=== PATIENT | female | born 1970 | race Caucasian/White ===

== ENCOUNTER → 2017-10-29 | Outpatient (CLI) | payer BC ==
[~2017-10-29] MED LIST: IOPAMIDOL-370 100 ML VIAL IV ONE
== END | disposition home or self-care (01) ==
LOC: RAH 07:59
PROVIDERS: ATTEND Internal Medicine Medical Oncology
DX: Z12.31 Encounter for screening mammogram for malignant neoplasm of breast (principal); C20 Malignant neoplasm of rectum; C78.01 Secondary malignant neoplasm of right lung; C77.5 Secondary and unspecified malignant neoplasm of intrapelvic lymph nodes; J98.11 Atelectasis; Z98.890 Other specified postprocedural states
CPT/HCPCS: 71260; 74177; 77067; Q9967

== ENCOUNTER → 2018-12-23 | Outpatient (CLI) | payer OTHER | END | disposition home or self-care (01) | LOC: SHCH 13:27 | PROVIDERS: ATTEND Internal Medicine Cardiovascular Disease | DX: R07.9 Chest pain, unspecified (principal) | CPT/HCPCS: 93306 ==

== ENCOUNTER → 2018-12-27 | Outpatient (CLI) | payer OTHER ==
[~2018-12-27] VITALS: Ht 180.3 cm; Wt 108.0 kg
[~2018-12-27] MED LIST changes: -IOPAMIDOL-370 100 ML VIAL IV ONE; +REGADENOSON 0.4 MG/5 ML PF SYG IVP SCH
== END | disposition home or self-care (01) ==
LOC: SHCH 07:55
PROVIDERS: ATTEND Internal Medicine Cardiovascular Disease
DX: R07.9 Chest pain, unspecified (principal)
CPT/HCPCS: 78452; 93017; 96374; A9500 ×2; J2785

== ENCOUNTER → 2020-02-08 | Outpatient (CLI) | payer OTHER ==
[~2020-02-08] MED LIST changes: +IOHEXOL 350 MG/ML 100ML INFUS..BTL IV ONE; -REGADENOSON 0.4 MG/5 ML PF SYG IVP SCH
== END | disposition home or self-care (01) ==
LOC: RAH 08:33
PROVIDERS: ATTEND Internal Medicine Medical Oncology
DX: C20 Malignant neoplasm of rectum (principal)
CPT/HCPCS: 71260; 74177; Q9967

== ENCOUNTER 2020-08-05 09:00 | Inpatient (IN) | payer OTHER ==
[~2020-08-05] VITALS: Ht 182.9 cm; Wt 117.8 kg
[~2020-08-05 09:00] MED LIST changes: +HYDR-4457 PO; -IOHEXOL 350 MG/ML 100ML INFUS..BTL IV ONE
[2020-08-05 11:34] LABS: BASOPHILS % (AUTO) 0.7 % (0.0-5.0); EOSINOPHILS % (AUTO) 1.8 % (0.0-8.0); HEMATOCRIT 41.2 % (36-48); LYMPHOCYTES % (AUTO) 23.5 % (21.0-51.0); MEAN CORPUSCULAR HEMOGLOBIN 29.4 pg (27.0-33.0); MEAN CORPUSCULAR HGB CONC 32.5 g/dL (32.0-36.0); MEAN CORPUSCULAR VOLUME 90.4 fL (79-99); MONOCYTES % (AUTO) 10.7 % (3.0-13.0); PLATELET COUNT (AUTO) 225 K/uL (130-400); RED BLOOD CELL COUNT(AUTO) 4.56 MIL/uL (4.00-5.50); RED CELL DISTRIBUTION WIDTH 12.3 % (11.0-15.5); WHITE BLOOD COUNT (AUTO) 7.2 K/uL (4.8-10.8)
[2020-08-05 11:45] LABS: CREATININE 0.9 mg/dL (0.5-1.5); POTASSIUM 4.1 mmol/L (3.5-5.1)
[2020-08-05 11:49] LABS: APPEARANCE,URINE Clear (CLEAR); BILIRUBIN,URINE Negative (NEGATIVE); COLOR,URINE Dark Yellow (YELLOW); GLUCOSE, URINE (UA) Negative (NEGATIVE); KETONES,URINE Negative (NEGATIVE); LEUKOCYTE ESTERASE ,URINE Negative (NEGATIVE); NITRATE,URINE Negative (NEGATIVE); OCCULT BLOOD,URINE Negative (NEGATIVE); PH,URINE 5.5 (5.0-8.0); PROTEIN,URINE Negative (NEGATIVE)
[2020-08-05 11:58] LABS: BACTERIA,URINE Rare /HPF (None Seen); RBC,URINE 0-1 /HPF (0-1); SQUAMOUS EPITHELIAL CELL,UR Rare /HPF (0-2); WBC,URINE 0-1 /HPF (0-1)
[2020-08-05 12:22] LABS: INR 0.91 (0.85-1.15); PROTHROMBIN TIME 9.8 SEC (9.6-11.6)
[2020-08-09 12:35] VITALS: BP 129/67
[2020-08-09] MEDS ORDERED: LEVO200T5 PO (12:59)
[2020-08-09] MEDS ORDERED: MELA1TAB8 PO (13:02)
[2020-08-09] MEDS ORDERED: DULO60CA64 PO (13:02)
[2020-08-09] MEDS ORDERED: GABA600T10 PO (13:02)
[2020-08-09] MEDS ORDERED: [UNRECOGNIZED DRUG - CODE] PO (13:02)
[2020-08-12] VITALS (22 sets, daily range): BP systolic 102–134; BP diastolic 43–70
[2020-08-12] MEDS ORDERED: LACTATED RINGERS 1000ML 1,000 ML IV ONE (09:12)
[2020-08-12] MEDS: CEFAZOLIN SODIUM 1 GM VIAL IVP PRN ×2 (09:44→12:43)
[2020-08-12] MEDS ORDERED: METOCLOPRAMIDE 10 MG/2 ML VIAL ONE (10:57)
[2020-08-12] MEDS ORDERED: KETOROLAC TROMETHAMINE 15MG/ML ONE (10:58)
[2020-08-12] MEDS ORDERED: ACETAMINOPHEN EXTRA STRENGTH 500 MG TABLET ONE (10:58)
[2020-08-12] MEDS ORDERED: CELECOXIB 200 MG CAP ONE (10:59)
[2020-08-12] MEDS ORDERED: TRANEXAMIC ACID 1000MG/10ML ONE ×2 (11:31→15:36)
[2020-08-12] MEDS ORDERED: CEFAZOLIN SODIUM 1 GM VIAL ONE (11:31)
[2020-08-12] MEDS ORDERED: LIDOCAINE PF 2% 5ML ABBOJECT ONE (11:41)
[2020-08-12] MEDS ORDERED: PROPOFOL 10 MG/ML 20ML VIAL IV ONE ×2 (11:41→13:20)
[2020-08-12] MEDS ORDERED: MIDAZOLAM HCL 1 MG/ML 2ML VIAL ONE (11:42)
[2020-08-12] MEDS ORDERED: ROCURONIUM 10MG/1ML SYR 10 MG/ML ML ONE (11:42)
[2020-08-12] MEDS ORDERED: ROPIVACAINE 0.5% 5MG/ML 30ML IJ ONE (11:47)
[2020-08-12] MEDS ORDERED: MEPERIDINE-PF 25 MG/ML SYG ONE ×3 (12:45→16:43)
[2020-08-12] MEDS ORDERED: EPHEDRINE SULFATE 50 MG/ML AMPULE ONE (13:43)
[2020-08-12] MEDS ORDERED: FENTANYL CITRATE PF 50 MCG/1 ML 2ML VIAL ONE (14:54)
[2020-08-12] MEDS ORDERED: GLYCOPYRROLATE 1 MG/5 ML SYRINGE ONE (14:56)
[2020-08-12] MEDS ORDERED: NEOSTIGMINE 5MG/5ML SYR IV ONE (14:56)
[2020-08-12] MEDS ORDERED: FERROUS FUMARATE 324 MG TABLET PO PRN (15:00)
[2020-08-12] MEDS ORDERED: TRAMADOL HCL 50 MG TABLET PO PRN (15:00)
[2020-08-12] MEDS: SODIUM CHLORIDE 0.9% 1000ML 1,000 ML IV SCH (15:00)
[2020-08-12] MEDS: ACETAMINOPHEN EXTRA STRENGTH 500 MG TABLET PO SCH ×2 (15:00→23:00)
[2020-08-12] MEDS ORDERED: POTASSIUM CHLORIDE 20MEQ/100ML 100 ML IV PRN (15:00)
[2020-08-12] MEDS ORDERED: TEMAZEPAM 15 MG CAPSULE PO PRN (15:00)
[2020-08-12] MEDS ORDERED: CALCIUM CARBONATE 500 MG TABLET PO PRN (15:00)
[2020-08-12] MEDS ORDERED: LIDOCAINE HCL-MPF 1% 2ML VIAL IV PRN (15:00)
[2020-08-12] MEDS ORDERED: ONDANSETRON HCL 4 MG/2 ML VIAL IVP PRN (15:00)
[2020-08-12] MEDS ORDERED: POTASSIUM CHLORIDE 10% ELIXIR 20 MEQ/15 ML UDCUP PO PRN (15:00)
[2020-08-12] MEDS ORDERED: POTASSIUM CHLORIDE 20 MEQ ERTAB PO PRN (15:00)
[2020-08-12] MEDS ORDERED: DiphenhydrAMINE HCL 50 MG/ML VIAL IVP PRN (15:00)
[2020-08-12] MEDS: OXYCODONE HCL 5 MG TAB PO PRN ×2 (17:44→22:28)
[2020-08-12] MEDS: FAMOTIDINE 20MG TAB 20 MG TAB PO SCH (19:49)
[2020-08-12] MEDS: CELECOXIB 200 MG CAP PO SCH (19:49)
[2020-08-12] MEDS: PREGABALIN 25 MG CAP PO SCH (19:49)
[2020-08-12] MEDS: ASPIRIN 81MG TAB.CHEW PO SCH (19:49)
[2020-08-12] MEDS: KETOROLAC TROMETHAMINE 15MG/ML IV PRN (20:09)
[2020-08-12] MEDS: CEFAZOLIN 3GM /D5W 100ML 100 ML IV SCH (20:18)
[2020-08-12] MEDS: HYDROMORPHONE HCL 2 MG/ML VIAL IVP PRN ×2 (21:34→23:05)
[2020-08-13] MEDS: HYDROMORPHONE HCL 2 MG/ML VIAL IVP PRN ×5 (00:23→05:28)
[2020-08-13] MEDS: SODIUM CHLORIDE 0.9% 1000ML 1,000 ML IV SCH ×2 (01:17→11:00)
[2020-08-13] MEDS ORDERED: HYDROMORPHONE PCA 10 MG/50 ML 50 ML IV PRN (01:45)
[2020-08-13] MEDS ORDERED: NALOXONE HCL 0.4 MG/1 ML ML IVP PRN (01:45)
[2020-08-13] MEDS: CEFAZOLIN 3GM /D5W 100ML 100 ML IV SCH (03:29)
[2020-08-13 03:59] VITALS: BP 96/48
[2020-08-13] MEDS: OXYCODONE HCL 5 MG TAB PO PRN ×4 (04:55→17:57)
[2020-08-13 05:45] LABS: HEMATOCRIT 31.1 % (36-48); MEAN CORPUSCULAR HEMOGLOBIN 29.1 pg (27.0-33.0); MEAN CORPUSCULAR HGB CONC 32.8 g/dL (32.0-36.0); MEAN CORPUSCULAR VOLUME 88.9 fL (79-99); RED BLOOD CELL COUNT(AUTO) 3.5 MIL/uL (4.00-5.50); RED CELL DISTRIBUTION WIDTH 12.1 % (11.0-15.5); WHITE BLOOD COUNT (AUTO) 8.8 K/uL (4.8-10.8)
[2020-08-13] MEDS: LEVOTHYROXINE 100 MCG TABLET PO SCH (05:57)
[2020-08-13] MEDS: ACETAMINOPHEN EXTRA STRENGTH 500 MG TABLET PO SCH ×3 (06:33→22:00)
[2020-08-13] MEDS ORDERED: LEVOTHYROXINE SODIUM 200 MCG PO SCH (07:30)
[2020-08-13] MEDS: PREGABALIN 25 MG CAP PO SCH ×2 (08:06→20:22)
[2020-08-13] MEDS: FAMOTIDINE 20MG TAB 20 MG TAB PO SCH ×2 (08:06→20:22)
[2020-08-13] MEDS: ASPIRIN 81MG TAB.CHEW PO SCH ×2 (08:06→20:23)
[2020-08-13] MEDS: DULOXETINE HCL 30 MG CAP PO SCH (08:06)
[2020-08-13] MEDS: CELECOXIB 200 MG CAP PO SCH ×2 (08:07→20:22)
[2020-08-13] MEDS: POLYETHYLENE GLYCOL 3350 17 GM POWD.PACK PO SCH (08:07)
[2020-08-13 08:23] VITALS: BP 94/64
[2020-08-13] MEDS ORDERED: NON-FORMULARY MEDICATION 1 EACH (Duloxetine HCl 60 MG) PO SCH (09:00)
[2020-08-13 11:32] VITALS: BP 97/42
[2020-08-13] MEDS: KETOROLAC TROMETHAMINE 15MG/ML IV PRN ×2 (15:01→20:30)
[2020-08-13 16:35] VITALS: BP 101/43
[2020-08-13 19:52] VITALS: BP 98/44
[2020-08-13 23:12] VITALS: BP 126/80
[2020-08-14] VITALS (7 sets, daily range): BP systolic 92–122; BP diastolic 40–63
[2020-08-14] MEDS: LEVOTHYROXINE 100 MCG TABLET PO SCH (05:51)
[2020-08-14] MEDS: ACETAMINOPHEN EXTRA STRENGTH 500 MG TABLET PO SCH (05:52)
[2020-08-14] MEDS: FAMOTIDINE 20MG TAB 20 MG TAB PO SCH (08:37)
[2020-08-14] MEDS: ASPIRIN 81MG TAB.CHEW PO SCH (08:37)
[2020-08-14] MEDS: CELECOXIB 200 MG CAP PO SCH (08:38)
[2020-08-14] MEDS: DULOXETINE HCL 30 MG CAP PO SCH (08:41)
[2020-08-14] MEDS: PREGABALIN 25 MG CAP PO SCH (08:42)
[2020-08-14] MEDS: POLYETHYLENE GLYCOL 3350 17 GM POWD.PACK PO SCH (09:00)
[2020-08-14] MEDS ORDERED: ASPI-1005 PO (11:16)
[2020-08-14] MEDS ORDERED: OXYC-38 PO (11:16)
[2020-08-15] MEDS ORDERED: BISACODYL 10 MG SUPP.RECT RC PRN (15:00)
== END 2020-08-14 17:30 | disposition home health service (06) | DRG 470 ==
LOC: DAHIP 08-12 08:33 → EDSTATUS 08-12 09:00 → 3AH 08-12 17:43
PROVIDERS: ADMIT Orthopaedic Surgery; ATTEND Orthopaedic Surgery
PROC: 0SRC0J9 Replacement of Right Knee Joint with Synthetic Substitute, Cemented, Open Approach (ICD-10-PCS; principal; 2020-08-12 13:19)
PROC: 3E0T3BZ Introduction of Anesthetic Agent into Peripheral Nerves and Plexi, Percutaneous Approach (ICD-10-PCS; 2020-08-12 13:19)
DX: M17.31 Unilateral post-traumatic osteoarthritis, right knee (principal); Z20.828 Contact with and (suspected) exposure to other viral communicable diseases; Z96.652 Presence of left artificial knee joint; G89.29 Other chronic pain; E03.9 Hypothyroidism, unspecified; Z85.038 Personal history of other malignant neoplasm of large intestine; Z83.3 Family history of diabetes mellitus; Z82.49 Family history of ischemic heart disease and other diseases of the circulatory system
CPT/HCPCS: 36415; 80048; 81001; 85025; 85027; 85610; 87641; 88305; 88311; 97039; G0378; J0690; J1170; J1885; J2001; J2175; J2250; J2704; J2710; J2765; J2795; J3010; J3490; J7120; U0003